=== PATIENT | female | born 1970 | race Caucasian/White ===

== ENCOUNTER 2023-01-27 09:52 | Outpatient (RCR) | payer OTHER, SELFPAY | END 2023-02-22 23:59 | LOC: NS 09:52 | PROVIDERS: PCP Internal Medicine; Referring Provider Internal Medicine; Visit Provider Internal Medicine | DX: Z71.3 Dietary counseling and surveillance (principal); E66.9 Obesity, unspecified; Z68.39 Body mass index [BMI] 39.0-39.9, adult | CPT/HCPCS: 97802 ==

== ENCOUNTER 2023-02-24 10:33 | Outpatient (RCR) | payer OTHER, SELFPAY | END 2023-03-25 23:59 | LOC: NS 10:33 | PROVIDERS: PCP Internal Medicine; Referring Provider Internal Medicine; Visit Provider Internal Medicine | DX: Z71.3 Dietary counseling and surveillance (principal); E66.9 Obesity, unspecified; Z68.39 Body mass index [BMI] 39.0-39.9, adult | CPT/HCPCS: 97803 ==

== ENCOUNTER 2023-03-30 07:37 | Outpatient (RCR) | payer OTHER, SELFPAY | END 2023-04-24 23:59 | LOC: NS 07:37 | PROVIDERS: PCP Internal Medicine; Referring Provider Internal Medicine; Visit Provider Internal Medicine | DX: E66.9 Obesity, unspecified (principal); Z68.39 Body mass index [BMI] 39.0-39.9, adult | CPT/HCPCS: 97803 ==

== ENCOUNTER 2023-04-27 07:31 | Outpatient (RCR) | payer OTHER, SELFPAY | END 2023-05-25 23:59 | LOC: NS 07:31 | PROVIDERS: PCP Internal Medicine; Referring Provider Internal Medicine; Visit Provider Internal Medicine | DX: Z71.3 Dietary counseling and surveillance (principal); E66.9 Obesity, unspecified; Z68.39 Body mass index [BMI] 39.0-39.9, adult | CPT/HCPCS: 97803 ==

== ENCOUNTER 2023-06-01 07:25 | Outpatient (RCR) | payer OTHER, SELFPAY | END 2023-06-24 23:59 | LOC: NS 07:25 | PROVIDERS: PCP Internal Medicine; Referring Provider Internal Medicine; Visit Provider Internal Medicine | DX: Z71.3 Dietary counseling and surveillance (principal); E66.9 Obesity, unspecified; Z68.39 Body mass index [BMI] 39.0-39.9, adult | CPT/HCPCS: 97803 ==